=== PATIENT | female | born 2000 | race African-American/Black ===

== ENCOUNTER 2021-01-29 14:19 | Emergency (ER) | payer OTHER ==
[~2021-01-29] VITALS: Ht 165.1 cm; Wt 71.8 kg
[2021-01-29] MEDS ORDERED: Birth Control Pill (14:42)
[2021-01-29 16:10] VITALS: BP 139/68
== END 2021-01-29 16:26 | disposition home or self-care (01) ==
LOC: M ED 14:19
DX: T19.2XXA Foreign body in vulva and vagina, initial encounter (principal); Z79.3 Long term (current) use of hormonal contraceptives

== ENCOUNTER 2023-06-23 21:10 | Inpatient (IN) | payer OTHER ==
[~2023-06-23] VITALS: Ht 162.6 cm; Wt 64.2 kg
[~2023-06-23 21:10] MED LIST: Birth Control Pill
[2023-06-23] MEDS ORDERED: MIRT1TAB PO (21:31)
[2023-06-23] MEDS ORDERED: SERT50TA29 PO (21:31)
[2023-06-23 21:39] LABS: HEMATOCRIT 48.4 % (36.0-47.0); HEMOGLOBIN 16.2 g/dl (12.0-15.5); MEAN CORPUSCULAR HEMOGLOBIN 27.9 pg (27.0-33.0); MEAN CORPUSCULAR HGB CONC 33.5 g/dl (32.0-36.5); MEAN CORPUSCULAR VOLUME 83.3 fl (80.0-96.0); PLATELET COUNT, AUTOMATED 277 10^3/uL (150-450); RED BLOOD COUNT 5.81 10^6/uL (4.00-5.40); WHITE BLOOD COUNT 11.9 10^3/uL (4.0-10.0)
[2023-06-23 22:02] LABS: ETHYL ALCOHOL (ETHANOL) < 0.003 % (0.000-0.010)
[2023-06-23 22:04] LABS: ALBUMIN 4.4 G/DL (3.2-5.2); ALKALINE PHOSPHATASE 73 U/L (46-116); ALT/SGPT 12 U/L (7.0-40); AST/SGOT 10 U/L (<34); BILIRUBIN,DIRECT 0.2 MG/DL (<0.4); BILIRUBIN,TOTAL 0.5 MG/DL (0.3-1.2); BLOOD UREA NITROGEN 10 MG/DL (9-23); CALCIUM LEVEL 10.1 MG/DL (8.5-10.1); CARBON DIOXIDE LEVEL 27 MMOL/L (20-31); CHLORIDE LEVEL 107 MMOL/L (98-107); GLOMERULAR FILTRATION RATE > 60.0 (>60); GLUCOSE, FASTING 109 MG/DL (60-100); POTASSIUM SERUM 3.5 MMOL/L (3.5-5.1); SALICYLATE LEVEL < 3.0 MG/DL (<30); SODIUM LEVEL 140 MMOL/L (136-145)
[2023-06-23 22:06] LABS: HCG, SERUM QUALITATIVE NEGATIVE (NEGATIVE); THYROID STIMULATING HORMONE 2.563 uIU/ML (0.55-4.78)
[2023-06-23 22:50] LABS: BARBITURATES URINE NEGATIVE (NEGATIVE); COCAINE METABOLITE URINE NEGATIVE (NEGATIVE)
[2023-06-23 22:51] LABS: AMPHETAMINES LEVEL URINE NEGATIVE (NEGATIVE); BENZODIAZEPINES URINE NEGATIVE (NEGATIVE); CANNABINOIDS URINE NEGATIVE (NEGATIVE); METHADONE URINE NEGATIVE (NEGATIVE); OPIATES URINE NEGATIVE (NEGATIVE); PHENCYCLIDINE URINE NEGATIVE (NEGATIVE)
[2023-06-23] MEDS: MIRTAZAPINE 7.5MG PER 1/2 TABLET PO ONE (23:04)
[2023-06-24] MEDS ORDERED: HOME MED LIST COMPLETE! XX SCH (08:00)
[2023-06-24] MEDS: SERTRALINE HCL 50 MG TAB PO SCH (08:22)
[2023-06-24] MEDS ORDERED: SERTRALINE HCL 50 MG TAB PO SCH (09:00)
[2023-06-24] MEDS ORDERED: MOM 30ML SUSPENSION UDC PO PRN (13:40)
[2023-06-24] MEDS ORDERED: ACETAMINOPHEN TAB 650MG DOSE (2X325MG) PO PRN (13:40)
[2023-06-24] MEDS ORDERED: MAALOX 30 ML SUSP *UDC PO PRN (13:40)
[2023-06-24] MEDS ORDERED: traZODone 50 MG TAB PO PRN (13:40)
[2023-06-24] MEDS ORDERED: IBUPROFEN 400MG TAB PO PRN (13:40)
[2023-06-24] MEDS ORDERED: diphenhydrAMINE 25MG CAP PO PRN (13:40)
[2023-06-24 18:47] VITALS: BP 132/82; TEMP 98.4; O2SAT 97
[2023-06-24] MEDS: NICOTINE 21MG/24HR 1 EA TRANSDERMAL TD PRN (21:50)
[2023-06-25 06:28] VITALS: BP 120/77; TEMP 97.1; O2SAT 98
[2023-06-25] MEDS: SERTRALINE HCL 25 MG TABLET PO SCH (10:00)
[2023-06-25] MEDS: SERTRALINE 100 MG TAB PO SCH (10:00)
[2023-06-25 17:04] VITALS: BP 116/73; TEMP 97.6
[2023-06-25] MEDS: MIRTAZAPINE 7.5MG PER 1/2 TABLET PO PRN (20:11)
[2023-06-26 06:23] VITALS: BP 115/67; TEMP 97.6; O2SAT 98
[2023-06-26] MEDS ORDERED: SERTRALINE 100 MG TAB PO SCH (09:00)
[2023-06-26 14:48] VITALS: BP 131/87; TEMP 98.2; O2SAT 99
[2023-06-27 06:29] VITALS: BP 105/62; TEMP 97.7; O2SAT 99
[2023-06-27] MEDS ORDERED: MIRT-10 PO (08:36)
[2023-06-27] MEDS ORDERED: SERT25TA21 PO (08:36)
[2023-06-27 08:51] VITALS: BP 105/62; TEMP 97.7; O2SAT 99
== END 2023-06-27 10:34 | disposition home or self-care (01) | DRG 881 ==
LOC: M ED 21:10 → M ED INP 06-24 13:37 → M PSY 06-24 18:05
PROVIDERS: ADMIT Student in an Organized Health Care Education/Training Program; ATTEND Student in an Organized Health Care Education/Training Program
DX: F32.A Depression, unspecified (principal); R45.851 Suicidal ideations; F32.9 Major depressive disorder, single episode, unspecified; Z79.899 Other long term (current) drug therapy

== ENCOUNTER 2024-01-18 19:16 | Emergency (ER) | payer OTHER ==
[~2024-01-18] VITALS: Ht 162.6 cm; Wt 70.9 kg
[~2024-01-18 19:16] MED LIST changes: +MIRT-10 PO; +MIRT1TAB PO; +SERT25TA21 PO; +SERT50TA29 PO
[2024-01-18 20:28] LABS: BASO % 0.4 % (0.0-1.0); EOS # 0.1 10^3/uL (0.0-0.5); EOS % 0.8 % (0.0-3.0); HEMATOCRIT 38.4 % (36.0-47.0); LYMPH # 2.7 10^3/uL (1.5-5.0); LYMPH % 35.8 % (24.0-44.0); MEAN CORPUSCULAR HEMOGLOBIN 28.7 pg (27.0-33.0); MEAN CORPUSCULAR HGB CONC 33.9 g/dl (32.0-36.5); MEAN CORPUSCULAR VOLUME 84.8 fl (80.0-96.0); MONO # 0.3 10^3/uL (0.0-0.8); MONO % 4.2 % (2.0-8.0); NEUTROPHILS # 4.4 10^3/uL (1.5-8.5); NEUTROPHILS % 58.7 % (36.0-66.0); PLATELET COUNT, AUTOMATED 235 10^3/uL (150-450); RED BLOOD COUNT 4.53 10^6/uL (4.00-5.40); WHITE BLOOD COUNT 7.6 10^3/uL (4.0-10.0)
[2024-01-18 21:09] LABS: HCG, SERUM QUANTITATIVE < 2.6 MIU/ML (<4.2)
[2024-01-18 21:10] LABS: BLOOD UREA NITROGEN 14 MG/DL (9-23); CALCIUM LEVEL 9.2 MG/DL (8.5-10.1); CARBON DIOXIDE LEVEL 28 MMOL/L (20-31); CHLORIDE LEVEL 109 MMOL/L (98-107); GLOMERULAR FILTRATION RATE > 60.0 (>60); GLUCOSE, FASTING 89 MG/DL (60-100); POTASSIUM SERUM 3.9 MMOL/L (3.5-5.1); SODIUM LEVEL 140 MMOL/L (136-145)
[2024-01-19 05:06] LABS: Trichomonas vaginalis (AMP) NOT DETECTED (NEGATIVE)
[2024-01-19 05:22] VITALS: BP 125/81; TEMP 96.6; O2SAT 98
[2024-01-19 05:30] LABS: GC DNA AMPLIFICATION NEGATIVE (NEGATIVE)
== END 2024-01-19 05:24 | disposition home or self-care (01) ==
LOC: M ED 19:16
DX: N92.0 Excessive and frequent menstruation with regular cycle (principal); F32.A Depression, unspecified; F41.9 Anxiety disorder, unspecified; Z79.899 Other long term (current) drug therapy